=== PATIENT | female | born 1965 | race Asian ===

== ENCOUNTER 2025-08-08 14:06 | Inpatient (IN) | payer BC, SELFPAY ==
--- NOTE | 2025-08-06 18:09 | ED.GENMED ---
History of Present Illness
General
Chief Complaint: Musculo-Skeletal Complaint
Source: patient
Exam Limitations: none
Time Seen by Provider: 08/06/25 17:30
Nursing documentation reviewed up to this point in time: agreed with
History of Present Illness
History of Present Illness:
Patient is a healthy 59-year-old female who presents to the emergency department 1 day of right leg weakness. Patient states she woke up this morning and noticed a 'heaviness' of her right leg. She states that it was affecting her gait throughout
the day as she was constantly having to lift her right leg so did not drag. She denies any pain or numbness in right leg. She denies any fever or back pain. No recent falls or trauma. She denies any other neurologic symptoms including headache,
visual changes, dizziness or ataxia, dysarthria, dysphagia.
Patient was seen at [facility] orthoped[facility] walk-in clinic today for evaluation and was ultimately referred to the emergency department to rule out a stroke.
Patient states that her father did have a stroke at a young age.
Review of Systems
Review of Systems
Allergies reviewed?: Yes
All Other Systems: ROS reviewed and negative except as documented in HPI and ROS
Phy Exam
Physical Exam
Physical Exam:
Vitals: Hypertensive, otherwise vital signs stable. Afebrile
General: Patient is well appearing, no acute distress
Skin: Warm and dry, no rashes or lesions
Head: Normocephalic, atraumatic
Eyes: Sclera nonicteric. EOMs intact. No nystagmus.
Throat: Protecting airway
Neck: Normal ROM, no cervical spine tenderness, no meningismus
Cardiac: Regular rate and rhythm, no murmurs.
Pulm: Normal respiratory effort. Lungs clear bilaterally.
.
Abdomen: No abdominal tenderness.
Extremities: No evidence of cyanosis or edema. Strength 5/5 in bilateral upper and lower extremities. Normal sensation. 2+ patellar reflexes. No clonus
Neuro: AAOx3. CN II-XII grossly intact. No facial droop or asymmetry. Normal finger-nose. Steady gait without any obvious ataxia. No focal neurologic deficits.
Psychiatric: Normal affect.
Course
Orders/Labs/Results
Orders:
Orders
08/06/25 Dinner
Regular
At Your Request: Full Participation
08/06/25 15:51
CT Head W/o Iv Contrast Urgent
Comment:
Reason For Exam: righ leg heavy started today, foot drags at times
08/06/25 18:07
Electrocardiogram (*1) Urgent
Reason for Study: TIA/Stroke
EKG- Treatment ONCE
08/06/25 18:18
CMP [Comprehensive Metabolic Panel] Urgent
Complete Blood Count/With Diff Urgent
08/06/25 19:02
Admit/Transfer Patient As Directed
Co-Sign Provider:
Level of Care: Observation services
Assign to:: Telemetry
Physician / Group: abhishek
Diagnosis: weakness right leg
Reason for Telemetry: Arrhythmia
Date to Stop Telemetry: 08/09/25
Time to Stop Telemetry: 11:00
Code Status As Directed
Resuscitation Status: Full Code
PRN Pain Medication Management As Directed
May give lesser potent ordered pain med per pt: Yes
preference::
Protocol:: Medication orders for pain may be administered in a
manner that supports deferring to patient preference
when the pt is:
- Requesting an ordered lesser potent pain medication.
Least to most potent pain medications are defined
as: acetaminophen < NSAID < tramadol < opioids
(morphine, oxycodone, hydromorphone).
- Requesting a lesser dose of the same medication IF
ORDERED.
- Requesting a less intrusive route of administration
if both routes are prescribed by the provider (PO <
IV).
08/06/25 19:07
Aspirin 325 mg PO NOW STA
08/06/25 19:08
Clopidogrel Bisulfate [Plavix] 300 mg PO NOW STA
08/06/25 20:36
Activity As Directed
Activity Level: As Tolerated
Pneumatic Compression Sleeves As Directed
Type: Knee high
Vital Signs As Directed
Frequency: Per unit guidelines
DX Deep Vein Thrombosis Video Routine
08/07/25 06:45
Basic Metabolic Panel IN AM
Complete Blood Count/With Diff IN AM
08/09/25 11:00
DC Protocol for Telemetry ONCE
Abnormal Lab Results
08/06/25
18:18
MCHC 32.9 L g/dL
(33.0-37.0)
Eosinophils % 6.7 H %
(0-6)
Chloride 108 H mmol/L
(98-107)
Glucose 107 H mg/dl
(70-99)
08/06/25 18:18
08/06/25 18:18
Vital Signs
Initial and Last Documented VS:
Initial Vital Signs
Temp Pulse Resp BP Pulse Ox
98.0 F 91 16 171/111 98
08/06/25 15:46 08/06/25 15:46 08/06/25 15:46 08/06/25 15:46 08/06/25 15:46
Last Documented Vital Signs
Temp Pulse Resp BP Pulse Ox
97.5 F 89 18 173/89 95
08/07/25 11:03 08/07/25 11:03 08/07/25 11:03 08/07/25 11:03 08/07/25 11:03
MDM/Problems Addressed
Differential Diagnosis Includes:
Not limited to: Radiculopathy, muscular strain, CVA, brain mass, multiple sclerosis, etc.
MDM/Problems Addressed:
59-year-old female with one day of right leg heaviness. Woke up with subjective weakness/heaviness affecting her gait throughout the day. No other symptoms including numbness, extremity pain, or headache. No speech difficulty, vision changes, ataxia.
Patient hypertensive on arrival with otherwise stable vital signs. On exam, she appears well and in no distress. She appears to have full and equal strength in bilateral upper and lower extremities with normal reflexes and no clonus. She has no
other focal neurologic deficits. She is able to ambulate. Normal speech.
NIH 0.
Impression is subjective weakness/heaviness in right lower extremity, which started this morning upon waking. RLE appears normal to inspection without obvious deformity, swelling, or erythema.
Differential as above. Considered peripheral neuropathy. Concern would be central process including CVA, brain mass, or other central process such as MS.
CT head did reveal some nonspecific patchy hypodensities.
Given persistent symptoms and nonspecific head CT findings - feel warrants admission for further neurologic work-up and MRI.
Patient accepted to hospitalist service in stable condition.
Chronic conditions affecting care:
N/A
Acute Exacerbation and/or Progression of Chronic Illness:
N/A
*Radiology
Radiology exam reviewed: radiology read reviewed
*Pulse Oximetry
SaO2: 97
Oxygen Mode of Delivery: Room air
Patient hypoxic: no
*EKG
Interpreted by ED Provider?: Yes
EKG Intrepretation Date: 08/06/25
Interpretation: normal
Comparison EKG: no comparison EKG present
Heart Rate: 69
Rate: normal
Rhythm: sinus
[place]: normal axis
Interval: normal QT interval
QRS Pattern: normal QRS
Ischemia: no ischemia
*Mower Mechanic Interpretation
Rate: Mower Mechanic- N/A
*Critical Care Note
Total Time (30-74mins, 75-104mins- exclusive of procedures): Not Applicable
Patient Management
Discussion with other providers: Hospitalist
ED Attending Note
-
Portions of this chart may have been created with voice recognition software.� Occasional wrong word or��sound alike� substitutions may have occurred due to the inherent limitations of voice recognition software.
Discharge Plan
Departure
Patient Disposition: Admit
Date of Disposition: 08/06/25
Time of Disposition: 18:07
Presentation/result/management discussed w/ accepting MD/DO: Hospitalist
Discharge Problem:
Right leg weakness
Interventions
Interventions:
*Risk Screen - Suicide Last Done: 08/06/25 15:46
*General Assessment Last Done: 08/06/25 15:46
*Neglect/Abuse Screening Last Done: 08/06/25 15:46
*ED COVID-19 Vaccine History Last Done: 08/06/25 15:46
*ED Influenza Vaccine History Last Done: 08/06/25 15:46
[facility] Risk Assessment Tool Last Done: 08/06/25 18:08
*Nursing Disposition Last Done: 08/06/25 20:35
ED-Musculoskeletal Assessment Last Done: 08/06/25 19:06
Discharge Date and Time
Discharge Date/Time: 08/06/25 20:35
[2025-08-06 18:31] LABS: Hematocrit 43.4 % (37.0-47.0); Hemoglobin 14.3 g/dL (12.0-16.0); Mean Corp Hgb Conc. 32.9 g/dL (33.0-37.0); Mean Corpuscular Volume 87.7 fL (81.0-99.0); Nucleated Red Blood Cells % 0 %; Platelet Count 275 10^3/uL (130-400); Red Cell Dist. Width 12.6 % (11.5-14.5)
[2025-08-06 18:56] LABS: ALT (SGPT) 29 U/L (0-35); AST (SGOT) 26 U/L (14-36); Albumin 4.2 g/dl (3.5-5.0); Alkaline Phosphatase 67 U/L (38-126); Blood Urea Nitrogen 13 mg/dl (7-17); Calcium 9.6 mg/dl (8.4-10.2); Carbon Dioxide 27 mmol/L (22-30); Chloride 108 mmol/L (98-107); Estimated Creatinine Clearance 102 ml/min; Glucose 107 mg/dl (70-99); Potassium 3.9 mmol/L (3.5-5.1); Sodium 141 mmol/L (135-145); Total Protein 7.5 g/dl (6.3-8.2); eGFR > 60.00
--- NOTE | 2025-08-06 19:04 | HPS.HSE ---
Addendum entered and electronically signed by Sana Hull MD 08/06/25 19:08:
Gave 325 mg aspirin and 300 mg Plavix.
Original Note:
Family Physician
-
Family Physician:
Chief Complaint
-
right leg heaviness
History of Present Illness
59-year-old female past medical history of headaches presenting with 1 day of right leg heaviness. She woke up this morning and noticed a heaviness of her right leg. She thought it was affecting her gait throughout the day she was constantly
having to lift her right leg so did not drag. She denies any pain or numbness in the right leg. Denies any fever back pain. Denies any falls or trauma. Denies any headache, visual changes, dizziness or ataxia, difficulty speaking, difficulty
swallowing. She was seen at [facility] for evaluation and was referred to the emergency room to rule out stroke.
Right leg heaviness has improved a bit.
She gets frontal headaches multiple times a week for which she takes ibuprofen regularly.
Father had a stroke at her age.
She does not smoke or drink alcohol or use drugs.
Medical History
Past Medical History
Past Medical History: Reports Other (headaches)
Past Surgical History: Reports None
Social History
Tobacco: Non-smoker
Alcohol: None
Drug: None
Family History
Family History: Not pertinent
Allergies / Home Medications
Allergies reflects when Allergies were last updated in [employer].
Home Medications with original date entered in [facility]
Allergy/Medication List:
Allergies
Allergy/AdvReac Type Severity Reaction Status Date / Time
Penicillins Allergy Hives Verified 08/06/25 18:08
Sulfa (Sulfonamide Allergy Nausea / Verified 08/06/25 18:08
Antibiotics) Vomiting
Home Medications
No Meds [No Current Medications] 08/06/25
Review of Systems
-
History Source: Patient
A 12 point ROS was completed and negative except as noted: Yes
Constitutional: Reports No Symptoms
EENT: Reports No Symptoms
Respiratory: Reports No Symptoms
Cardiac: Reports No Symptoms
Abdomen/GI: Reports No Symptoms
: Reports No Symptoms
Musculoskeletal: Reports No Symptoms
Skin: Reports No Symptoms
Neurological: Reports See HPI
Endocrine: Reports No Symptoms
Hematologic/Lymphatic: Reports No Symptoms
Psych: Reports No Symptoms
Physical Exam
Vital Signs
Vital Signs
Temp Pulse Resp BP Pulse Ox
98.5 F 85 18 155/87 96
08/06/25 18:06 08/06/25 18:59 08/06/25 18:06 08/06/25 18:58 08/06/25 18:59
Physical Exam
General: Well Developed, Well Nourished and No Apparent Distress
HEENT: NormoCephalic, Moist mucous membranes and Atraumatic
Respiratory: Clear
Cardiac: S1/S2 and Regular Rhythm; No Murmur or Rub
GI: Soft, Non Tender, Non Distended and Normal Bowel Sounds; No Organomegaly
Rectal: Deferred by Provider
Musculoskeletal: No Clubbing, No Cyanosis and No Edema
Skin: No Rash
Neuro: Nonfocal/grossly intact
Laboratory Results
-
08/06/25 18:18
08/06/25 18:18
Laboratory Results
Total Bilirubin 0.5 mg/dl (0.2-1.3) 08/06/25 18:18
AST 26 U/L (14-36) 08/06/25 18:18
ALT 29 U/L (0-35) 08/06/25 18:18
Alkaline Phosphatase 67 U/L (38-126) 08/06/25 18:18
Data Reviewed
-
Lab Data: Labs Reviewed by me
Old Records: Reviewed
Impression/Plan
-
IMPRESSION:
PLAN:
# Right leg weakness concerning for CVA versus demyelinating process such as multiple sclerosis
-NIH of 0
- CT head shows patchy areas of decreased density within the white matter of both cerebral hemispheres concerning for small vessel ischemic disease, vasculitis or demyelinating process such as multiple sclerosis
-Telemetry
- Check MRI brain with and without contrast
-Check A1c and lipid panel
- Neurology consulted
History of recurrent headaches possibly migraines
- Takes ibuprofen few times a week
Full code
DVT prophylaxis�SCDs
Regular diet
[2025-08-06] MEDS: ASPIRIN 325 MG PO (19:33)
[2025-08-06] MEDS: PLAVIX 300 MG PO (19:33)
--- NOTE | 2025-08-06 20:50 | PTCARENOTE ---
Pt arrived to unit from ED via stretcher. Ambulated from bed to stretcher with standby assistance of 1 staff member d/t weakness in RLE. A&Ox3. Pt oriented to unit with bed in lowest position. Call light within reach. NIH remains at 0. Swallow
screening passed. Pt instructed to call staff for assistance with ambulation. Plan of care ongoing.
[2025-08-07 07:25] LABS: Hematocrit 40.5 % (37.0-47.0); Hemoglobin 13.5 g/dL (12.0-16.0); Mean Corp Hgb Conc. 33.3 g/dL (33.0-37.0); Mean Corpuscular Volume 86.7 fL (81.0-99.0); Nucleated Red Blood Cells % 0 %; Platelet Count 264 10^3/uL (130-400); Red Cell Dist. Width 12.6 % (11.5-14.5)
[2025-08-07 07:27] LABS: Blood Urea Nitrogen 11 mg/dl (7-17); Calcium 9.4 mg/dl (8.4-10.2); Carbon Dioxide 26 mmol/L (22-30); Chloride 109 mmol/L (98-107); Estimated Creatinine Clearance 86 ml/min; Glucose 93 mg/dl (70-99); Potassium 4.0 mmol/L (3.5-5.1); Sodium 140 mmol/L (135-145); eGFR > 60.00
[2025-08-07 07:33] LABS: HDL Cholesterol 46 mg/dl; LDL Cholesterol, Calculated 101 mg/dl; Very Low Density Lipoprotein 16 mg/dl (0-30)
--- NOTE | 2025-08-07 08:25 | CON.NEURO4 ---
Addendum entered and electronically signed by Wilfrid Estrada MD 08/07/25 19:44:
I saw and examined the patient along with nurse practitioner Patsy Walter, and agree with her assessment and management plan. I personally performed the medical decision making of this encounter and my assessment and management plan is as given
below.
The patient is a 59 years old right-handed female who presented to the hospital on 08/06/2025 with report of right leg 'heaviness' that started 1 day prior to admission. She woke up yesterday morning on 10/07/2024 and noticed that her right leg felt
heavy and she was able to walk but her right foot kept dragging. CT head was obtained on arrival in the ER and is negative for any acute abnormalities. Blood pressure was 171/111. She was not a candidate for TNK due to being outside of the time
window and low NIHSS. Carotid ultrasound was done that found 0-49% internal carotid artery stenosis bilaterally. When she presented to the hospital her blood pressure was 171/111.
Neurologic examination: Alert oriented x 3, speech is clear, the cranial nerves II to XII grossly intact, the visual weems are grossly full to confrontation, the motor strength is 5/5 in bilateral upper extremities and in the left lower extremity
while the strength in the right lower extremity is 4/5. The patient appears to have weakness of the dorsiflexion of the right foot which was about 3/5.
The patient presented with right lower extremity weakness and there is a concern for a possible stroke. The other etiology to consider is a demyelinating disorder. The patient's blood pressure was 171/111 when she presented to the hospital and she
has been not on any medication. MRI of the brain with and without contrast and MRI of the cervical spine with and without contrast are pending. Will consider MRI of the lumbar spine if the MRI of the brain and cervical spine are normal. Also will
consider EMG/NCS as a workup for possible right foot drop.
Transthoracic echocardiogram
LDL goal < 70
Aspirin 81 mg daily, Plavix 75 mg daily and atorvastatin 40 mg daily.
Original Note:
Consultation - Neurology 4
-
CONSULTING PHYSICIAN: Wilfrid Estrada MD
REFERRING PHYSICIAN: Hospitalists/Dr. Hull
DICTATED BY: ANKITA Cross
DATE/TIME OF REQUEST: 08/06/25
DATE/TIME OF CONSULTATION: 08/07/25
Reason for Consultation: Right lower extremity weakness
History of Present Illness:
This is a 59-year-old right-handed female who has presented to the hospital on 08/06/25 with report of right leg 'heaviness.' Patient reports that Sunday night (08/05/25) she went to bed in her usual state. She woke up yesterday morning
(08/06/25) at 0630 and noticed that her right leg felt 'heavy.' She was able to walk but her right foot kept dragging and she was going much slower than baseline. She went to [facility] and was referred to the ER for evaluation.
CT head was obtained on arrival in the ER and is negative for any acute abnormalities. Blood pressure was 171/111. She was not a candidate for TNK/IAT due to being outside of the time window and low NIHSS. Today (08/07/25), she reports ongoing RLE
symptoms and a mild headache. She denies any dizziness, vision changes, speech/swallow difficulty, and numbness. Patient reports that she has had high blood pressure readings in the past but nothing requiring medication. She denies any history of
migraines, TIA, or stroke in the past. She is not taking any blood-thinning medications.
Past Medical History: HTN not on medication.
Surgical History: None.
Family History: Father- stroke.
Social History: Denies tobacco, alcohol, and illicit drug use.
Allergies: Penicillins, sulfa.
Home Medications: See below.
Review of Symptoms:
Patient denies any fever, headache, chest pain, shortness of breath, GI or symptoms.
�Per the HPI.�All systems are reviewed negative except above.
Physical Exam:
The patient is afebrile, abdomen is nondistended, breathing is unlabored, skin is warm and dry, no edema.
NIH Stroke Scale:
I performed the NIH stroke scale on the patient on 08/07/25 at 1000. The patient scored 1 points on the NIH stroke scale assessment, which were assigned as follows: See below.
Neurologic Examination:
The patient is awake, alert and oriented x 3. She is able to follow commands and answer questions appropriately. There is no aphasia or dysarthria. On cranial nerve assessment, pupils are 3 mm bilateral, round and reactive to light and
accommodation. Visual weems are full. Extraocular movements are intact. Facial sensations are intact and bilaterally symmetrical, there is no facial asymmetry. Hearing is intact bilaterally to normal conversation volume. Tongue palate and uvula are
midline. Sternocleidomastoid strengths are full bilaterally. Motor strengths are 5/5 bilateral upper and left lower extremities, 4/5 RLE 3/5 R dorsiflexion and 4/5 R knee flexion on medical research [place] scale. There is drift in the RLE. No
involuntary movement noted. There was no extinction noted on double simultaneous stimulation. Coordination is intact by finger to nose bilaterally and heel to young bilaterally.
Lab Results: See below.
Neuro Imaging:
1. CT Head 08/06/25: Patchy areas of decreased density within the white matter as described above. As warranted, further evaluation with MRI of the brain could be considered.
Differentials for the patient's presentation include:
1. Right lower extremity weakness; etiology is concerning for an acute ischemic stroke, differential diagnosis includes a peripheral nerve injury or demyelinating disease but that is less likely given her age.
Patient has the following risk factors for their symptoms: HTN
IV Tenecteplase/IAT candidacy: She was not a candidate for TNK/IAT due to being outside of the time window and low NIHSS.
Recommendations:
-Continue aspirin 81mg daily.
-MRI brain w/ and w/o contrast pending.
-MRI lumbar spine w/ and w/o contrast pending.
-Carotid ultrasound pending.
-TTE pending.
-If MRI brain/cervical spine are normal, consider MRI lumbar spine and outpatient EMG.
-Goal normotension as symptom onset was 24 hour ago.
-LDL goal <70. LDL is 101. Continue newly initiated atorvastatin 40mg daily.
-Goal normoglycemia, hbA1c is 4.8.
-NIHSS and neurological checks per unit guidelines.
-Provide patient with a stroke education packet.
-DVT prophylaxis.
Discussed patient care with: Dr. Estrada, the patient, patient's spouse
Medications
-
Active Medications
Generic Name Dose Route Start Last Admin
Trade Name Freq PRN Reason Stop Dose Admin
Aspirin 81 mg 08/07/25 08:00 08/07/25 08:33
Aspirin 81 Mg Chewable Tablet PO 09/04/25 07:59 81 mg
DAILY EMERITA Administration
Atorvastatin Calcium 40 mg 08/07/25 18:00
Atorvastatin (Lipitor) 40 Mg Tablet PO 09/04/25 17:59
QPM EMERITA
Home Medications
�Medication �Instructions �Recorded
No Meds [No Current Medications] 08/06/25
Vital Signs and Labs
.
Vital Signs and Labs:
Lab Results
08/07/25 06:45
08/07/25 06:45
Temp Pulse Resp BP Pulse Ox
97.5 F 89 18 173/89 95
08/07/25 11:03 08/07/25 11:03 08/07/25 11:03 08/07/25 11:03 08/07/25 11:03
NIH Stroke Score
Subsequent NIH Scale
Date of Subsequent NIH Scale: 08/07/25
Time of Subsequent NIH Scale: 10:00
NIH Stroke Score
Level of Consciousness: 0 - Alert
LOC Questions: 0-Answers both correctly
LOC Commands: 0-Performs both correctly
Best Horizontal Gaze: 0-Normal
Visual Weems: 0=Normal, no visual loss
Facial Palsy: 0=Normal, symmetrical
Motor - Right Arm: 0=No drift 10 seconds
Motor - Left Arm: 0=No drift 10 seconds
Motor - Right Le-Drift < 5 seconds
Motor - Left Le-No drift 5 seconds
Limb Ataxia: 0-Absent
Sensation: 0-Normal
Best Language: 0-No aphasia
Dysarthria: 0-Normal
Extinction and Inattention: 0-No abnormality
NIH Total Score:: 1
Modified Lander (mRS) Score
Modified Artemio Scale (mRS): Slight disability. Able to look after own affairs.
Score: 2
Alteplase Contraindication
Inclusion and Exclusion criteria reviewed: Yes
Reasons for NON-Tx with Thrombolytics ABSOLUTE Exclusions: Greater than 4.5 hrs from onset of sxs
IAT Contraindications: NIHSS < 6
[2025-08-07] MEDS: LOW STRENGTH ASPIRIN 81 MG PO (08:33)
--- NOTE | 2025-08-07 10:29 | W.PN.HOSP.TC ---
Today's Communication/Plan
-
see PN
Assessment / Plan
Assessment / Plan
59yo F with no significant PMHx came with RLE heaviness started upon awakening on the day of admission and lasting thorughout next 24h with minor improvement, CT head concerning for There are patchy areas of decreased density within the white matter
of both cerebral hemispheres, with main differential considerations of small vessel ischemic disease, vasculitis, and demyelinating process such as multiple sclerosis.
No recent respiratory illness, vaccinations reported.
A/P:
#RLE paresthesia
motor function seems to be preserved
ASA, statin pending MRI brain and cervical spine as per neurologist
Telemetry without clinically significant arrhythmia
Echo
US carotids
Neurochecks as per policy
Neurologist consult
check b12, folate
TSH WNL
LDL 101
HgbA1c pending
#HLD
statin and outpatient f/u
DVT ppx SCDs
Full code
I have spent at least 59min reviewing hcart, test results, communication with consultants, bedside and providing direct patient care
Anticipated Discharge: Within 24 hours
Subjective/Interval History
-
Date of Service: August 07, 2025
Objective Data
-
Labs:
Laboratory Results
08/07/25
06:45
WBC 5.7
Hgb 13.5
Hct 40.5
Plt Count 264
Sodium 140
Potassium 4.0
Chloride 109 H
Carbon Dioxide 26
BUN 11
Creatinine 0.7
Glucose 93
Calcium 9.4
Vital Signs:
Vital Signs
Temp Pulse Resp BP Pulse Ox
97.7 F 66 15 145/91 94
08/07/25 07:29 08/07/25 07:29 08/07/25 07:29 08/07/25 07:29 08/07/25 09:53
I&O
08/06/25 08/07/25 08/08/25
06:59 06:59 06:59
Intake Total 480 / 480
Balance 480 / 480
Review of Systems
-
History Source: Patient
All other systems: Reviewed and negative
Neuro: Reports Other (RLE heaviness)
Physical Exam
-
General: No Apparent Distress and Comfortable
HEENT: Normocephalic, Atraumatic and Moist Mucous Membranes
Musculoskeletal: No Clubbing, No Cyanosis and No Edema
Neuro: Awake, Alert, Oriented, AO x 3, No Sensory Deficits and Other (Strength preserved in all 4 extr. tongue deviation to R noted)
Psych: Calm
[2025-08-07 11:25] LABS: Glycohemoglobin (HgbA1c) 4.8 % (4.0-5.9)
[2025-08-07 12:16] LABS: Folate 17.0 ng/ml (2.76-20); Vitamin B12 657 pg/ml (239-931)
--- NOTE | 2025-08-07 16:49 | CM ---
Alert awake oriented patient who lives with her Yoandy in a 2 story home with 2 steps to enter 14 and to bed/bathroom. He is independent in driving and ADLs.No DME.Observation letter explained given signed on chart.Offered VN he declined
need.
VN/SNF HX
Pharmacy [facility]
PCP Dr Lucas
PLAN Home no needs
[2025-08-07] MEDS: LIPITOR 40 MG PO (17:32)
[2025-08-08] MEDS: LOW STRENGTH ASPIRIN 81 MG PO (07:56)
--- NOTE | 2025-08-08 10:04 | W.PN.HOSP.TC ---
Today's Communication/Plan
-
MRI brain
Assessment / Plan
Assessment / Plan
59yo F with no significant PMHx came with RLE heaviness started upon awakening on the day of admission and lasting thorughout next 24h with minor improvement, CT head concerning for There are patchy areas of decreased density within the white matter
of both cerebral hemispheres, with main differential considerations of small vessel ischemic disease, vasculitis, and demyelinating process such as multiple sclerosis.
No recent respiratory illness, no recent vaccinations reported.
A/P:
#RLE paresthesia
motor function seems to be preserved
ASA, statin pending MRI brain and cervical spine as per neurologist
Telemetry without clinically significant arrhythmia
Echo: Normal biventricular size and systolic function, with no regional wall motion abnormalities. Estimated LVEF 65-70%, The interatrial septum appears normal and intact, with no evidence of interatrial shunting. Bubble study was negative for
interatrial shunt with and without Valsalva.
US carotids without clinically significant carotid stenosis
Neurochecks as per policy
Neurologist consult: outpatient EMG
b12, folate WNL
TSH WNL
LDL 101
HgbA1c 4.8%
#HLD
statin and outpatient f/u
DVT ppx SCDs
Full code
I have spent at least 36min reviewing hcart, test results, communication with consultants, bedside and providing direct patient care
Anticipated Discharge: Within 24 hours
Subjective/Interval History
-
Date of Service: August 08, 2025
Objective Data
-
Vital Signs:
Vital Signs
Temp Pulse Resp BP Pulse Ox
98.3 F 68 16 145/94 95
08/08/25 07:40 08/08/25 07:40 08/08/25 07:40 08/08/25 07:40 08/08/25 07:40
I&O
08/07/25 08/08/25 08/09/25
06:59 06:59 06:59
Intake Total 480 / 480 480 / 480
Balance 480 / 480 480 / 480
Review of Systems
-
History Source: Patient
Constitutional: Reports No Symptoms
Physical Exam
-
General: No Apparent Distress
Respiratory: Clear to Auscultation
Cardiac: Regular Rhythm
GI: Soft, Nontender and Nondistended
Neuro: Awake, Alert, Oriented and AO x 3
Psych: Calm
--- NOTE | 2025-08-08 13:08 | W.DCSUMMARY ---
Discharge Summary
Discharge Data
Date of Admission: 08/08/25
Date of Discharge: 08/09/25
-
Pending Results: No
Hospital Course
59yo F with no significant PMHx came with RLE heaviness started upon awakening on the day of admission and lasting throughout next 24h with minor improvement, CT head concerning for There are patchy areas of decreased density within the white matter
of both cerebral hemispheres, with main differential considerations of small vessel ischemic disease, vasculitis, and demyelinating process such as multiple sclerosis. Telemetry w/o clinically significant arrhythmia. Echo: Normal biventricular size
and systolic function, with no regional wall motion abnormalities. Estimated LVEF 65-70%, The interatrial septum appears normal and intact, with no evidence of interatrial shunting. Bubble study was negative for interatrial shunt with and without
Valsalva. US carotids without clinically significant carotid stenosis. Neurology recommended ASA, statin and outpatient EMG with thoracic and lumbar MRI - 7.3 mm ACUTE ISCHEMIC INFARCT in the LEFT PARIETAL LOBE CENTRUM SEMIOVALE, 4 mm chronic
lacunar infarct in the right thalamus, MODERATE to SEVERE WHITE MATTER DISEASE. Outpatient cardiac exercise specialist to be arranged by cardiology. Rheumatology referral provided. Recommended to have hypercoagulability w/u and autoimmune w/u with PCP. ALso
daily BP monitoring advised. Accidental finding of RUL opacity on CTA head/neck - outpatient CT chest with contrast advised
MRI cervical showed multilevel DJD without critical stenosis, but There is no MRI evidence for abnormal enhancement in the cervical spinal cord.
Patient and bedside verbalized understanding of the instructions. Medically stable to be d/c home as symptoms resolved.
No recent respiratory illness, no recent vaccinations reported.
I have spent at least 36min reviewing hcart, test results, communication with consultants, bedside and providing direct patient care
Patient was managed for:
#RLE paresthesia
#HLD
#Moderate to severe discogenic degenerative disease at C6/C7.
#Moderate discogenic degenerative disease at C4/C5 and C5/C6.
#Mild spinal cord compression and central canal stenosis at C5/C6 and C6/C7.
#Moderate to severe right neural foraminal narrowing at C5/C6.
#Moderate bilateral neural foraminal narrowing at C6/C7.
#Minimal spinal cord compression at C4/C5.
#Mild kyphosis at C4/C5.
#RUL opacity
Discharge Plan
-
Patient Disposition: Home (Routine Discharge)
Discharge Diagnosis/Procedures: RLE paresthesia
Diet: Low Cholesterol
Activity: As tolerated
Driving Restrictions: As prior to admission
Others Tests: Tiny intraparenchymal microhemorrhages in the thalami and right temporal lobe with PCP
Activity Restrictions/Additional Instructions:
ekg monitor will be arranged by [employer], if no call in 2-3 days received - please call [facility] cardiology
measure blood pressure in AM and PM, keep log and follow up with your PCP for need in medications after collecting data for 7 days
Obtain from your PCP referral to spinal specialist for multilevel degenerative disease of the cervical spine, CT chest and autoimmune workup
Referrals:
[facility] [Provider Group] - in one to two months
Referral Note: Cervical spinal stenosis due to DJD
[facility] [Provider Group]
Referral Note: Neurovasculitis workup
Franc Blankenship MD [Active, Neurology] - in two to four weeks
Referral Note: for EMG, thoracic and lumbar MRI as recommended by inpatient neurologist
Davon Lucas MD [Family Provider, Internal Medicine] - in less than 1 week
Referral Note: hypercoagulation w/u, vasculitis and autoimmune w/u
Chest CT with contrast for right upper lobe opacity
Additional Discharge Medication Instructions: Plavix to continue for 21 days total and stop
Prescriptions:
New
atorvastatin 40 mg Tablet
40 mg PO QPM Qty: 30 0RF
aspirin 81 mg Tablet,Chewable
81 mg PO DAILY Qty: 30 0RF
clopidogrel [Plavix] 75 mg tablet
75 mg PO DAILY Qty: 20 0RF
Discharge Orders:
Discharge Patient (As Directed); Ordered 08/09/25
Ordered By: Aly Mares
Discharge Date and Time
Print Language: LUX[place]BOURG[place]
[2025-08-08] MEDS: PLAVIX 75 MG PO (13:41)
[2025-08-08 14:59] LABS: C-Reactive Protein < 5.00 mg/L (0.0-10.00)
[2025-08-08 15:36] LABS: INR 0.99; PT 13.2 Sec (11.4-14.6)
[2025-08-08 15:37] LABS: APTT 27.6 Sec (23.4-35.0)
[2025-08-08] MEDS: LIPITOR 40 MG PO (17:15)
[2025-08-09] MEDS: LOW STRENGTH ASPIRIN 81 MG PO (09:40)
--- NOTE | 2025-08-09 10:56 | W.PN.HOSP.TC ---
Today's Communication/Plan
-
DC
Assessment / Plan
Assessment / Plan
59yo F with no significant PMHx came with RLE heaviness started upon awakening on the day of admission and lasting thorughout next 24h with minor improvement, CT head concerning for There are patchy areas of decreased density within the white matter
of both cerebral hemispheres, with main differential considerations of small vessel ischemic disease, vasculitis, and demyelinating process such as multiple sclerosis.
No recent respiratory illness, no recent vaccinations reported.
A/P:
#RLE paresthesia (improving) 2/2 acute stroke
#Hx of old stroke
#Hx of microhemorrhage most liekly 2/2 poor
MRI with: 7.3 mm ACUTE ISCHEMIC INFARCT in the LEFT PARIETAL LOBE CENTRUM SEMIOVALE, 4 mm chronic lacunar infarct in the right thalamus, MODERATE to SEVERE WHITE MATTER DISEASE in the frontal lobes, parietal lobes, and in the deep white matter which
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
motor function seems to be preserved
ASA, statin, Plavix
CTA without signs of carotis stenosis LVO or vascular beading
ESR/CRP normal
Outpatient autoimmune w/u
Telemetry without clinically significant arrhythmia
Echo: Normal biventricular size and systolic function, with no regional wall motion abnormalities. Estimated LVEF 65-70%, The interatrial septum appears normal and intact, with no evidence of interatrial shunting. Bubble study was negative for
interatrial shunt with and without Valsalva.
US carotids without clinically significant carotid stenosis
Neurochecks as per policy
Neurologist consult: outpatient EMG
b12, folate WNL
TSH WNL
LDL 101
HgbA1c 4.8%
Keep log of BP at home
#RUL pulmonary opacity
seen on CTA neck
Will need CT chest w contrast, will defer to PCP - patient verbalized understanding to follow up with her in 1 week to request study. Currently received contrast for CTA, so better to defer.
#Moderate to severe discogenic degenerative disease at C6/C7.
#Moderate discogenic degenerative disease at C4/C5 and C5/C6.
#Mild spinal cord compression and central canal stenosis at C5/C6 and C6/C7.
#Moderate to severe right neural foraminal narrowing at C5/C6.
#Moderate bilateral neural foraminal narrowing at C6/C7.
#Minimal spinal cord compression at C4/C5.
#Mild kyphosis at C4/C5.
Outpatient ortho
There is no MRI evidence for abnormal enhancement in the cervical spinal cord
#HLD
statin and outpatient f/u
DVT ppx SCDs
Full code
I have spent at least 36min reviewing chart, test results, communication with consultants, bedside and providing direct patient care
Anticipated Discharge: Today
Subjective/Interval History
-
Date of Service: August 09, 2025
Objective Data
-
Vital Signs:
Vital Signs
Temp Pulse Resp BP Pulse Ox
98.1 F 73 18 130/88 94
08/09/25 07:00 08/09/25 07:00 08/09/25 07:00 08/09/25 07:00 08/09/25 07:00
I&O
08/08/25 08/09/25 08/10/25
06:59 06:59 06:59
Intake Total 480 / 480 480 / 480
Balance 480 / 480 480 / 480
Review of Systems
-
All other systems: Reviewed and negative
Constitutional: Reports No Symptoms
Physical Exam
-
General: No Apparent Distress
Neuro: Awake, Alert, Oriented and AO x 3
Psych: Calm
--- NOTE | 2025-08-09 12:04 | W.PN.UPDATE ---
Update Note
Progress Note Update
MRI showed acute ischemic infarct in the white matter of the superior left parietal lobe centrum semiovale. This is consistent with her presenting symptom of right leg heaviness. Her stroke mechanism isn't completely clear. Her CTA didn't show
significant athero. Cardioembolic is possible. TTE showed normal EF. I recommend DAPT per POINT (81mg aspirin + 75mg plavix daily for 21 days followed by 81mg aspirin alone daily). She'll need outpatient cardiac monitoring and outpatient neuro
follow-up within 4 weeks.
== END 2025-08-09 12:55 | disposition home or self-care (01) | DRG 66 ==
LOC: 3 WEST ACU 14:06
PROVIDERS: Physician Assistant; ADMITTING PHYSICIAN Hospitalist; ATTENDING PHYSICIAN Internal Medicine; CONSULT PHYSICIAN Psychiatry & Neurology Neurology; EMERGENCY PHYSICIAN Emergency Medicine; FAMILY PHYSICIAN Internal Medicine
DX: I63.81 Other cerebral infarction due to occlusion or stenosis of small artery (principal); R20.2 Paresthesia of skin; E78.5 Hyperlipidemia, unspecified; M40.209 Unspecified kyphosis, site unspecified; M48.02 Spinal stenosis, cervical region; I10 Essential (primary) hypertension; Z79.899 Other long term (current) drug therapy
CPT/HCPCS: 70450; 70496; 70498; 70553; 72156; 80048; 80053; 80061; 82607; 82746; 83036; 84443; 85025; 85610; 85652; 85730; 86140; 93005; 93307; 93880; 99285; A9575; Q9967